=== PATIENT | male | born 1950 | race Caucasian/White ===

== ENCOUNTER 2016-11-22 22:23 | Emergency (ER) | payer MEDICARE, MEDICAID ==
--- NOTE | 2016-11-22 22:51 | RADIOLOGY REPORT (SQ) ---
EXAM DESCRIPTION: KNEE LEFT 4 VIEW COMPLETED DATE/TIME: 11/22/2016 10:42 pm REASON FOR STUDY: fall COMPARISON: None. NUMBER OF VIEWS: Four views. TECHNIQUE: AP, lateral, and both oblique radiographic images acquired of the left knee. LIMITATIONS: None. FINDINGS: MINERALIZATION: Normal. BONES: No acute fracture or dislocation. No worrisome bone lesions. JOINT: There is joint space narrowing in all compartments consistent with osteoarthritis. SOFT TISSUES: No soft tissue swelling. No radio-opaque foreign body. OTHER: No other significant finding. IMPRESSION: Osteoarthritis. No acute findings. TECHNICAL DOCUMENTATION: JOB ID: [id number] [employer]- All Rights Reserved
--- NOTE | 2016-11-22 22:57 | ER Document Report ---
ED Fall - General Mode of Arrival: Wheelchair Information source: Patient TRAVEL OUTSIDE OF THE [place] IN LAST 30 DAYS: No - HPI Occurred: This afternoon - 16:00 Location of injury/pain: Back, Knee - left <LOUIS SHERIDAN - Last Filed: 11/23/16 00:56> <SHYLA MCLAUGHLIN - Last Filed: 11/23/16 05:26> - General Chief Complaint: Fall Stated Complaint: FALL, LEFT KNEE PAIN Time Seen by Provider: 11/22/16 22:57 - HPI Notes: Patient is a 66 year old male presenting to the emergency department for left knee and lower back pain after a fall. Patient fell around 16:00 today. Patient also had an episode of incontinence after the fall. Patient states he was walking and got caught in some amanda which caused him to fall straight forward. Patient states his lower back pain is moving from the right to left side but it is currently on the left side during the exam. Patient states he has a right hip fracture that he is planning to get fixed surgically. Patient states 18 months ago he had a total right knee replacement. Patient is a former smoker. Patient has a history of prostate cancer with bone metastasis. Patient has no known drug allergies. PCP: Dr. Sawant (LOUIS SHERIDAN) - Related data Allergies/Adverse Reactions: No Known Allergies Allergy (Verified 11/18/14 11:20) Past Medical History - General Information source: Patient, Relative - spouse - Social History Smoking Status: Former Smoker Cigarette use (# per day): No Chew tobacco use (# tins/day): No Smoking Education Provided: No Frequency of alcohol use: None Drug Abuse: None Family History: None Patient has suicidal ideation: No Patient has homicidal ideation: No - Past Medical History Cardiac Medical History: Reports: Hx Hypertension Neurological Medical History: Reports: Hx Cerebrovascular Accident - 2013; resulting in loss of 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 Malignancy Medical History: 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; tx w/chemo Traumatic Medical History: Reports: Hx Fractures - right hip Past Surgical History: Reports: Hx Orthopedic Surgery - right knee total replacement <LOUIS SHERIDAN - Last Filed: 11/23/16 00:56> Review of Systems - Review of Systems Constitutional: No symptoms reported EENT: No symptoms reported Cardiovascular: No symptoms reported Respiratory: No symptoms reported Gastrointestinal: No symptoms reported Genitourinary: See HPI, Incontinence Male Genitourinary: No symptoms reported Musculoskeletal: See HPI, Back pain, Joint pain - left knee, Joint swelling - left knee Skin: No symptoms reported Hematologic/Lymphatic: No symptoms reported Neurological/Psychological: No symptoms reported -: Yes All other systems reviewed and negative <LOUIS SHERIDAN - Last Filed: 11/23/16 00:56> Physical Exam - Vital signs Interpretation: Hypertensive <ARVINQUINTINLOUIS - Last Filed: 11/23/16 00:56> <SHYLA MCLAUGHLIN - Last Filed: 11/23/16 05:26> - Vital signs Vitals: Temp Pulse Resp BP Pulse Ox 98.1 F 86 18 163/70 H 99 11/22/16 22:27 11/22/16 22:27 11/22/16 22:27 11/22/16 22:27 11/22/16 22:27 - Notes Notes: GENERAL: Alert, interacts well. Mild distress. HEAD: Normocephalic, atraumatic. EYES: Appear normal. Pupils equal, round, and reactive to light. ENT: Moist mucus membranes, tongue midline. NECK: Full range of motion. Supple. Trachea midline. LUNGS: Clear to auscultation bilaterally, no wheezes, rales, or rhonchi. No respiratory distress. HEART: Regular rate and rhythm. No murmurs, gallops, or rubs. ABDOMEN: Soft, non-tender. Non-distended. Normal bowel sounds. BACK: Left lumbar musculature is slightly tender with palpation. EXTREMITIES: Moves all 4 extremities spontaneously. Normal strength. Non-tender with palpation over the left hip. Diffuse tenderness with palpation, some swelling, and bruising to the left knee. Lateral ligaments are intact. Right hip has some slight tenderness with palpation. NEUROLOGICAL: Alert and oriented x3. Normal speech. No focal neurological deficits. GSC 15. PSYCH: Normal affect, normal mood. SKIN: Warm, dry, normal turgor. (LOUIS SHERIDAN) Course <LOUIS SHERIDAN - Last Filed: 11/23/16 00:56> - Diagnostic Test Radiology reviewed: Image reviewed, Reports reviewed - Left knee x-ray shows osteoarthritic changes without fracture. Right hip shows some joint space narrowing with subchondral sclerosis, lumbar spine shows degenerative changes without fracture. <SHYLA MCLAUGHLIN - Last Filed: 11/23/16 05:26> - Re-evaluation Re-evalutation: 11/23/16 05:25 The knee immobilizer was placed on the left knee by the PCT. It fit well. It provided good support and comfort. The patient had his own crutches with him. ( SHYLA MCLAUGHLIN) - Vital Signs Vital signs: Temp Pulse Resp BP Pulse Ox 98.2 F 81 18 150/73 H 99 11/23/16 00:00 11/23/16 00:00 11/23/16 00:00 11/23/16 00:00 11/23/16 00:00 Discharge <LOUIS SHERIDAN - Last Filed: 11/23/16 00:56> <SHYLA MCLAUGHLIN - Last Filed: 11/23/16 05:26> - Discharge Clinical Impression: Fall Qualifiers: Encounter type: initial encounter Qualified Code(s): W19.XXXA - Unspecified fall, initial encounter Sprain of left knee Qualifiers: Encounter type: initial encounter Involved ligament of knee: unspecified ligament Qualified Code(s): S83.92XA - Sprain of unspecified site of left knee, initial encounter Lumbar strain Qualifiers: Encounter type: initial encounter Qualified Code(s): S39.012A - Strain of muscle, fascia and tendon of lower back, initial encounter Condition: Stable Disposition: HOME, SELF-CARE Additional Instructions: Sprained Knee: Your sprained knee results from a stretching or tearing of the ligaments which support the joint. This often results from a bending stress -- such as a twisting fall while skiing or a "clip" while playing football. The ligaments will require time and protection to heal adequately. A knee sprain can be quite serious, and should be taken seriously. The usual treatment is splinting of the knee, ice packs, and elevation. You shouldn't walk on the leg if weightbearing is painful. Unless the sprain is obviously a minor one, follow-up exam is very important. The degree of ligament damage often cannot be fully assessed at first due to muscle spasm and pain. Your treatment plan may change based on the physician's findings during your follow-up examination. Call the doctor at once if there is severe swelling, increasing pain, numbness, or other alarming symptoms. USE THE KNEE IMMOBILIZER FR SUPPORT AND COMFORT. ELEVATE AND ICE-PACKS TO THE KNEE TODAY. LIMIT WALKING. FOLLOW UP WITH YOUR ORTHOPEDIC DOCTOR TO RECHECK THE KNEE IN THE NEXT 3-5 DAYS. RETURN TO THE EMERGENCY ROOM IF ANY NEW OR WORSENING SYMPTOMS. Scribe Attestation: 11/23/16 00:05 I personally performed the services described in the documentation, reviewed and edited the documentation which was dictated to the scribe in my presence, and it accurately records my words and actions. (SHYLA MCLAUGHLIN) Scribe Documentation - Scribe Written by Everton:: Everton Kraft 11/22/16 23:05 acting as scribe for :: Anna <LOUIS SHERIDAN - Last Filed: 11/23/16 00:56>
--- NOTE | 2016-11-22 23:30 | RADIOLOGY REPORT (SQ) ---
EXAM DESCRIPTION: L SPINE WHOLE COMPLETED DATE/TIME: 11/22/2016 11:23 pm REASON FOR STUDY: old fx, fall, LBP and hip pain COMPARISON: 05/12/2014 NUMBER OF VIEWS: Five views including obliques. TECHNIQUE: AP, lateral, oblique, and sacral radiographic images acquired of the lumbar spine. LIMITATIONS: None. FINDINGS: MINERALIZATION: Normal. SEGMENTATION: Normal. No transitional anatomy. ALIGNMENT: Normal. VERTEBRAE: Maintained height. No fracture or worrisome bone lesion. DISCS: There is mild multilevel disc space narrowing. There is endplate sclerosis. POSTERIOR ELEMENTS: Pedicles and facets are intact. No pars defect or posterior arch defects. HARDWARE: None in the spine. PARASPINAL SOFT TISSUES: Normal. PELVIS: Intact as visualized. No fractures or worrisome bone lesions. SI joints intact. OTHER: No other significant finding. IMPRESSION: Mild degenerative changes. No acute findings. TECHNICAL DOCUMENTATION: JOB ID: [id number] [employer]- All Rights Reserved
--- NOTE | 2016-11-22 23:32 | RADIOLOGY REPORT (SQ) ---
EXAM DESCRIPTION: HIP RIGHT AP/LATERAL COMPLETED DATE/TIME: 11/22/2016 11:23 pm REASON FOR STUDY: old fx, fall, LBP and hip pain COMPARISON: None. NUMBER OF VIEWS: Two views. TECHNIQUE: AP and frog-leg view of the right hip. LIMITATIONS: None. FINDINGS: MINERALIZATION: Normal. RIGHT HIP: There is joint space narrowing and subchondral sclerosis. No acute fracture or dislocatio n OPPOSITE HIP: No fracture or dislocation. No worrisome bone lesions. SOFT TISSUES: No findings. OTHER: No other significant finding. IMPRESSION: Joint space narrowing, subchondral sclerosis. No acute findings. TECHNICAL DOCUMENTATION: JOB ID: [id number] [employer]- All Rights Reserved
[2016-11-23 00:21] VITALS: BP 150/73
== END 2016-11-23 00:23 | disposition home or self-care (01) ==
LOC: ER 22:23
DX: S83.92XA Sprain of unspecified site of left knee, initial encounter (principal); S39.012A Strain of muscle, fascia and tendon of lower back, initial encounter; W17.89XA Other fall from one level to another, initial encounter; Y93.01 Activity, walking, marching and hiking; M25.562 Pain in left knee; M47.9 Spondylosis, unspecified; Z87.891 Personal history of nicotine dependence; Z85.46 Personal history of malignant neoplasm of prostate; Z85.830 Personal history of malignant neoplasm of bone; Z92.21 Personal history of antineoplastic chemotherapy
CPT/HCPCS: 99283; 73502; 73562; 72110; L1830

== ENCOUNTER 2018-09-04 14:23 | Observation (INO) | payer MEDICARE, MEDICAID ==
[2018-09-04] MEDS ORDERED: NORMAL SALINE 1000 ML 1,000 ML IV ONE (15:32)
--- NOTE | 2018-09-04 15:32 | ER Document Report ---
ED Medical Screen (RME) - General Chief Complaint: Abdominal Pain Stated Complaint: PAIN BELOW BELLY BUTTON Time Seen by Provider: 09/04/18 15:30 Primary Care Provider: ROSELINE MICHAUD PA [Primary Care Provider] - Follow up as needed Information source: Patient Notes: Patient presents complaining of right lower quadrant pain that started yesterday. Patient does report some dysuria. Patient denies any penile discharge. Patient denies any fever, nausea vomiting or diarrhea. Patient does have a history of CVA, prostate cancer and hypertension. I have greeted and performed a rapid initial assessment of this patient. A comprehensive ED assessment and evaluation of the patient, analysis of test results and completion of the medical decision making process will be conducted by additional ED providers. TRAVEL OUTSIDE OF THE [place] IN LAST 30 DAYS: No - Related Data Allergies/Adverse Reactions: No Known Allergies Allergy (Verified 09/04/18 14:32) Past Medical History - Past Medical History Cardiac Medical History: Reports: Hx Hypertension Neurological Medical History: Reports: Hx Cerebrovascular Accident - 2012; resulting in loss of 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 Renal/ Medical History: Denies: Hx Peritoneal Dialysis Malignancy Medical History: 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; tx w/chemo Traumatic Medical History: Reports: Hx Fractures - right hip Past Surgical History: Reports: Hx Orthopedic Surgery - right knee total replacement - Immunizations Hx Diphtheria, Pertussis, Tetanus Vaccination: Yes Physical Exam - Vital signs Vitals: Temp Pulse Resp BP Pulse Ox 98.0 F 77 16 106/56 L 98 09/04/18 14:35 09/04/18 14:35 09/04/18 14:35 09/04/18 14:35 09/04/18 14:35 - Abdominal Tenderness: Tender - Right lower quadrant tenderness Course - Vital Signs Vital signs: Temp Pulse Resp BP Pulse Ox 98.0 F 77 16 106/56 L 98 09/04/18 14:35 09/04/18 14:35 09/04/18 14:35 09/04/18 14:35 09/04/18 14:35 Doctor's Discharge - Discharge Referrals: ROSELINE MICHAUD PA [Primary Care Provider] - Follow up as needed
[2018-09-04 17:12] LABS: ABSOLUTE BASOPHILS # (AUTO) 0.1 10^3/uL (0.0-0.2); ABSOLUTE EOSINOPHILS # (AUTO) 0.3 10^3/uL (0.0-0.6); ABSOLUTE LYMPHOCYTES (AUTO) 1.6 10^3/uL (0.5-4.7); ABSOLUTE MONOCYTES (AUTO) 1.3 10^3/uL (0.1-1.4); BASOPHILS % (AUTO) 1.1 % (0-2); EOSINOPHILS % (AUTO) 2.5 % (0-6); HEMATOCRIT 40.8 % (37.9-51.0); HEMOGLOBIN 13.6 g/dL (13.5-17.0); LYMPHOCYTES % (AUTO) 13.9 % (13-45); MEAN CORPUSCULAR HEMOGLOBIN 28.7 pg (27.0-33.4); MEAN CORPUSCULAR HGB CONC 33.2 g/dL (32.0-36.0); MEAN CORPUSCULAR VOLUME 87 fl (80-97); MONOCYTES % (AUTO) 11.2 % (3-13); PLATELET COUNT 263 10^3/uL (150-450); RED BLOOD COUNT 4.72 10^6/uL (4.35-5.55); RED CELL DISTRIBUTION WIDTH 14.8 % (11.5-14.0); SEGMENTED NEUTROPHILS % (AUTO) 71.3 % (42-78); TOTAL CELLS COUNTED % (AUTO) 100 %; WHITE BLOOD COUNT 11.2 10^3/uL (4.0-10.5)
[2018-09-04 17:27] LABS: APPEARANCE,URINE CLEAR; COLOR,URINE AMBER; GLUCOSE, URINE NEGATIVE (NEGATIVE)
[2018-09-04 17:28] LABS: BILIRUBIN,URINE MODERATE (NEGATIVE); KETONES,URINE 25 mg/dL (NEGATIVE); LEUKOCYTE ESTERASE,URINE NEGATIVE (NEGATIVE); NITRITE,URINE NEGATIVE (NEGATIVE); PROTEIN,URINE 30 mg/dL (NEGATIVE)
[2018-09-04 17:29] LABS: ADD MANUAL MICROSCOPIC YES; BACTERIA,URINE 3+ /HPF; WBC,URINE 0-1 /HPF
[2018-09-04 18:42] LABS: CHLAM PCR NOT DETECTED (NOT DETECT); GON PCR NOT DETECTED (NOT DETECT)
[2018-09-04 20:03] LABS: ALANINE AMINOTRANSFERASE 26 U/L (21-72); ALBUMIN 3.4 g/dL (3.5-5.0); ALKALINE PHOSPHATASE 106 U/L (38-126); ANION GAP 10 (5-19); ASPARTATE AMINO TRANSFERASE 26 U/L (17-59); BILIRUBIN,DIRECT 0.2 mg/dL (0.0-0.4); BILIRUBIN,TOTAL 0.3 mg/dL (0.2-1.3); BLOOD UREA NITROGEN 22 mg/dL (7-20); CALCIUM 8.3 mg/dL (8.4-10.2); CARBON DIOXIDE 25 mmol/L (22-30); CHLORIDE 104 mmol/L (98-107); GLUCOSE 92 mg/dL (75-110); POTASSIUM 4.5 mmol/L (3.6-5.0); SODIUM 138.5 mmol/L (137-145)
--- NOTE | 2018-09-04 21:10 | RADIOLOGY REPORT (SQ) ---
EXAM DESCRIPTION: CT ABDOMEN PELVIS WITH IV CONTRAST COMPLETED DATE/TME: 09/04/2018 19:32 CLINICAL HISTORY: 68 years, Male, rlq pain COMPARISON: None. TECHNIQUE: Contrast enhanced CT of the abdomen/pelvis was performed. Coronal and sagittal reformations were acquired. Images stored on PACS. All CT scanners at this facility use dose modulation, iterative reconstruction, and/or weight based dosing when appropriate to reduce radiation dose to as low as reasonably achievable (ALARA). [facility]: Dose Right [facility]: CareDose [facility]: Dose Right [facility]: Teradose 4D [facility]: [employer] LIMITATIONS: None. FINDINGS: Limited evaluation of the lower chest reveals clear lung bases. The liver, spleen, pancreas, gallbladder, and both adrenal glands appear normal. Both kidneys enhance symmetrically. There is no hydronephrosis or hydroureter. The urinary bladder is partially collapsed, thus its evaluation is limited. The small and large bowel appear normal in caliber without areas of focal wall thickening. Evidence of bowel obstruction. The appendix is dilated and fluid-filled, demonstrating periappendiceal inflammatory stranding. No extraluminal free air is identified. Likewise, there is no evidence of a drainable periappendiceal fluid collection. However, significant amorphous soft tissue density is noted immediately adjacent to the appendix, suspicious for phlegmon. The fluid density within the right lower quadrant on image 68 of series 5 in the midst of the inflammation is favored represent the dilated appendiceal tip. A small fat-containing right inguinal hernia is noted. Mild calcifications are evident about the abdominal aorta. No suspicious lymphadenopathy is appreciated. There are no drainable fluid collections. Bone windows show coarse trabeculation about the right hemipelvis. In addition, there is a focal sclerotic lesion located within the superior left acetabulum on image 68 of series 3. IMPRESSION: Findings consistent with acute appendicitis. Superimposed amorphous periappendiceal soft tissue density with adjacent inflammatory stranding indicates periappendiceal phlegmon. The degree of periappendiceal phlegmon is somewhat concerning for perforation though there is no evidence of extraluminal free air. Coarsened trabeculation about the right hemipelvis, suspicious for Paget's disease. Sclerotic lesion located within the superior left acetabulum is indeterminate. Given the patient's history of prostate cancer, course and both scan would be of benefit. THIS REPORT CONTAINS FINDINGS THAT MAY BE CRITICAL TO PATIENT CARE: The findings were verbally discussed via telephone conference with Dr. BIANCA WILLINGHAM by Dr. Arreola on 09/04/2018 2006 hours CDT .The results were acknowledged and understood. TECHNICAL DOCUMENTATION: Quality ID # [id number]: Final reports with documentation of one or more dose reduction techniques (e.g., Automated exposure control, adjustment of the mA and/or kV according to patient size, use of iterative reconstruction technique) copyright 2011 [employer]- All Rights Reserved
[2018-09-04] MEDS ORDERED: PIPERACILLIN/TAZOBACTAM 3.375 GM VIAL IV ONE (21:25)
[2018-09-04] MEDS ORDERED: MORPHINE SULFATE 10 MG/ML INJ IV PRN (21:32)
[2018-09-04] MEDS ORDERED: RINGERS SOLUTION,LACTATED 1,000 ML IV ONE (21:32)
--- NOTE | 2018-09-04 21:41 | ER Document Report ---
ED General - General Chief Complaint: Abdominal Pain Stated Complaint: PAIN BELOW BELLY BUTTON Time Seen by Provider: 09/04/18 15:30 Notes: Patient is a 68-year-old male with past medical history of prior CVA, history of essential hypertension, prostate cancer currently managed with an unspecified agent injected once every 3 months, presents complaining of 36 hours of progressively worsening pain to his right lower quadrant. States that it woke him from sleep yesterday morning and has gotten progressively worse since that time. Describes it as a throbbing, aching, severe, constant pain to the right lower quadrant of his abdomen. Worsened by movement of any kind. Nothing improves the pain. Denies any history of similar symptoms in the past. Denies fever or constitutional symptoms. Has not seen his primary care physician regarding today's concerns. TRAVEL OUTSIDE OF THE [place] IN LAST 30 DAYS: No - Related Data Allergies/Adverse Reactions: No Known Allergies Allergy (Verified 09/04/18 14:32) Past Medical History - General Information source: Patient - Social History Smoking Status: Former Smoker Frequency of alcohol use: Occasional Drug Abuse: None Lives with: Alone Family History: Reviewed & Not Pertinent Patient has suicidal ideation: No Patient has homicidal ideation: No - Past Medical History Cardiac Medical History: Reports: Hx Hypertension Neurological Medical History: Reports: Hx Cerebrovascular Accident - 2012; resulting in loss of 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 Renal/ Medical History: Denies: Hx Peritoneal Dialysis Malignancy Medical History: 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; tx w/chemo Traumatic Medical History: Reports: Hx Fractures - right hip Past Surgical History: Reports: Hx Orthopedic Surgery - right knee total replacement - Immunizations Hx Diphtheria, Pertussis, Tetanus Vaccination: Yes Review of Systems - Review of Systems Notes: Constitutional: Negative for fever. HENT: Negative for sore throat. Eyes: Negative for visual changes. Cardiovascular: Negative for chest pain. Respiratory: Negative for shortness of breath. Gastrointestinal: Positive for lower abdominal pain and nausea Genitourinary: Negative for dysuria. Musculoskeletal: Negative for back pain. Skin: Negative for rash. Neurological: Negative for headaches, weakness or numbness. 10 point ROS negative except as marked above and in HPI. Physical Exam - Vital signs Vitals: Temp Pulse Resp BP Pulse Ox 98.0 F 77 16 106/56 L 98 09/04/18 14:35 09/04/18 14:35 09/04/18 14:35 09/04/18 14:35 09/04/18 14:35 Interpretation: Normal Notes: PHYSICAL EXAMINATION: GENERAL: Appears moderately uncomfortable but in no overt distress HEAD: Atraumatic, normocephalic. EYES: Pupils equal round and reactive to light, extraocular movements intact, sclera anicteric, conjunctiva are normal. ENT: nares patent, oropharynx clear without exudates. Moist mucous membranes. NECK: Normal range of motion, supple without lymphadenopathy LUNGS: Breath sounds clear to auscultation bilaterally and equal. No wheezes rales or rhonchi. HEART: Regular rate and rhythm without murmurs ABDOMEN: Soft, focal tenderness to the right lower quadrant with associated guarding although no rebound. Bowel sounds are present. EXTREMITIES: Normal range of motion, no pitting or edema. No cyanosis. NEUROLOGICAL: No focal neurological deficits. Moves all extremities spontaneously and on command. PSYCH: Normal mood, normal affect. SKIN: Warm, Dry, normal turgor, no rashes or lesions noted. Course - Re-evaluation Re-evalutation: 09/04/18 21:34 Patient presents with a classic exam and history for appendicitis. CT the abdomen pelvis does confirm acute appendicitis localized phlegmon. Perforation is not definitively excluded per the radiologist. Labs show mild leukocytosis, otherwise unremarkable. Last p.o. intake greater than 12 hours ago. Case discussed with Dr. Peck. IV Zosyn has been initiated. Patient has been made n.p.o. IV fluids ongoing. - Vital Signs Vital signs: Temp Pulse Resp BP Pulse Ox 98.0 F 77 16 106/56 L 98 09/04/18 14:35 09/04/18 14:35 09/04/18 14:35 09/04/18 14:35 09/04/18 14:35 - Laboratory Result Diagrams: 09/04/18 16:35 09/04/18 19:37 Laboratory results interpreted by me: 09/04/18 09/04/18 09/04/18 16:15 16:35 19:37 WBC 11.2 H RDW 14.8 H BUN 22 H Calcium 8.3 L Total Protein 6.0 L Albumin 3.4 L Urine Protein 30 H Urine Ketones 25 H Urine Bilirubin MODERATE H Urine Urobilinogen 8.0 H - Diagnostic Test Radiology reviewed: Reports reviewed Discharge - Discharge Clinical Impression: Lower abdominal pain Acute appendicitis Qualifiers: Acute appendicitis type: with localized peritonitis Appendicitis gangrene presence: without gangrene Appendicitis perforation presence: unspecified whether perforation present Appendicitis abscess presence: unspecified whether abscess present Qualified Code(s): K35.30 - Acute appendicitis with localized peritonitis, without perforation or gangrene Condition: Fair Disposition: ADMITTED OBSERVATION Admitting Provider: Surgicalist Unit Admitted: Surgical Floor
--- NOTE | 2018-09-04 22:28 | PDOC H&P ---
History of Present Illness Admission Date/PCP: 09/04/18 22:18 Patient complains of: abdominal pains History of Present Illness: JOSE GALVEZ is a 68 year old male with history of prostate ca c/o RLQ abdominal pains at 1 am today. Went to ED where CT scan showed acute appendicitis. [place] warm but no chills. Burning sesation on voiding. Past Medical History Cardiac Medical History: Reports: Hypertension Malignancy History Note: prostate Ca on therapy Past Surgical History Past Surgical History: Reports: Orthopedic Surgery - right knee total r eplacement Social History Smoking Status: Former Smoker Family History Family History: None Parental Family History Reviewed: Yes Children Family History Reviewed: No Sibling(s) Family History Reviewed.: No Medication/Allergy Allergies/Adverse Reactions: No Known Allergies Allergy (Verified 09/04/18 14:32) Review of Systems Constitutional: PRESENT: as per HPI Eyes: PRESENT: other - no visual/hearing changes Cardiovascular: PRESENT: other - no chest pains/cough Gastrointestinal: PRESENT: abdominal pain Genitourinary: PRESENT: dysuria Physical Exam Vital Signs: Temp Pulse Resp BP Pulse Ox 98.0 F 77 16 106/56 L 98 09/04/18 14:35 09/04/18 14:35 09/04/18 14:35 09/04/18 14:35 09/04/18 14:35 Intake & Output 09/03/18 09/04/18 09/05/18 06:59 06:59 06:59 Weight 66.5 kg General appearance: PRESENT: mild distress Head exam: PRESENT: atraumatic Eye exam: PRESENT: conjunctiva pink Mouth exam: PRESENT: moist Neck exam: PRESENT: full ROM Respiratory exam: PRESENT: clear to auscultation marylu Cardiovascular exam: PRESENT: RRR Pulses: PRESENT: normal radial pulses Vascular exam: PRESENT: normal capillary refill GI/Abdominal exam: PRESENT: soft, tenderness - RLQ Rectal exam: PRESENT: deferred Extremities exam: PRESENT: full ROM Musculoskeletal exam: PRESENT: ambulatory Neurological exam: PRESENT: alert, oriented to person, oriented to place, oriented to time, oriented to situation Psychiatric exam: PRESENT: appropriate affect Skin exam: PRESENT: normal color, warm Results Laboratory Results: 09/04/18 16:35 09/04/18 19:37 09/04/18 09/04/18 09/04/18 16:15 16:35 16:35 WBC 11.2 H RBC 4.72 Hgb 13.6 Hct 40.8 MCV 87 MCH 28.7 MCHC 33.2 RDW 14.8 H Plt Count 263 Seg Neutrophils % 71.3 Lymphocytes % 13.9 Monocytes % 11.2 Eosinophils % 2.5 Basophils % 1.1 Absolute Neutrophils 8.0 Absolute Lymphocytes 1.6 Absolute Monocytes 1.3 Absolute Eosinophils 0.3 Absolute Basophils 0.1 Sodium Cancelled Potassium Cancelled Chloride Cancelled Carbon Dioxide Cancelled Anion Gap Cancelled BUN Cancelled Creatinine Cancelled Est GFR ( Amer) Cancelled Est GFR (Non-Af Amer) Cancelled Glucose Cancelled Calcium Cancelled Total Bilirubin Cancelled AST Cancelled ALT Cancelled Alkaline Phosphatase Cancelled Total Protein Cancelled Albumin Cancelled Urine Color YULIYA Urine Appearance CLEAR Urine pH 6.0 Ur Specific [place] 1.030 Urine Protein 30 H Urine Glucose (UA) NEGATIVE Urine Ketones 25 H Urine Blood NEGATIVE Urine Nitrite NEGATIVE Ur Leukocyte Esterase NEGATIVE 09/04/18 19:37 WBC RBC Hgb Hct MCV MCH MCHC RDW Plt Count Seg Neutrophils % Lymphocytes % Monocytes % Eosinophils % Basophils % Absolute Neutrophils Absolute Lymphocytes Absolute Monocytes Absolute Eosinophils Absolute Basophils Sodium 138.5 Potassium 4.5 Chloride 104 Carbon Dioxide 25 Anion Gap 10 BUN 22 H Creatinine 0.94 Est GFR ( Amer) > 60 Est GFR (Non-Af Amer) > 60 Glucose 92 Calcium 8.3 L Total Bilirubin 0.3 AST 26 ALT 26 Alkaline Phosphatase 106 Total Protein 6.0 L Albumin 3.4 L Urine Color Urine Appearance Urine pH Ur Specific [place] Urine Protein Urine Glucose (UA) Urine Ketones Urine Blood Urine Nitrite Ur Leukocyte Esterase Impressions: Abdomen/Pelvis CT 09/04/18 19:32 IMPRESSION: Findings consistent with acute appendicitis. Superimposed amorphous periappendiceal soft tissue density with adjacent inflammatory stranding indicates periappendiceal phlegmon. The degree of periappendiceal phlegmon is somewhat concerning for perforation though there is no evidence of extraluminal free air. Coarsened trabeculation about the right hemipelvis, suspicious for Paget's disease. Sclerotic lesion located within the superior left acetabulum is indeterminate. Given the patient's history of prostate cancer, course and both scan would be of benefit. THIS REPORT CONTAINS FINDINGS THAT MAY BE CRITICAL TO PATIENT CARE: The findings were verbally discussed via telephone conference with Dr. BIANCA WILLINGHAM by Dr. Arreola on 09/04/2018 2006 [facility] CDT .The results were acknowledged and understood. TECHNICAL DOCUMENTATION: Quality ID # 436: Final reports with documentation of one or more dose reduction techniques (e.g., Automated exposure control, adjustment of the mA and/or kV according to patient size, use of iterative reconstruction technique) copyright 2011 [employer]- All Rights Reserved Assessment & Plan - Diagnosis (1) Acute appendicitis Qualifiers: Acute appendicitis type: with localized peritonitis Appendicitis gangrene presence: without gangrene Appendicitis perforation presence: unspecified whether perforation present Appendicitis abscess presence: unspecified whether abscess present Qualified Code(s): K35.30 - Acute appendicitis with localized peritonitis, without perforation or gangrene Is this a current diagnosis for this admission?: Yes (2) Lower abdominal pain Is this a current diagnosis for this admission?: Yes - Time Time Spent: 30 to 50 Minutes - Inpatient Certification Medical Necessity: Need For IV Fluids, Need for IV Antibiotics, Need for Surgery - Plan Summary Plan Summary: Start IV antibiotics Hydration For lap appendectomy
[2018-09-05] MEDS ORDERED: FENTANYL CITRATE INJ/PF 100 MCG/2 ML AMPUL ONE (02:27)
[2018-09-05] MEDS ORDERED: PROPOFOL INJ 200 MG/20 ML VIAL IV ONE (02:27)
[2018-09-05] MEDS ORDERED: MIDAZOLAM 2 MG/2 ML INJ ONE (02:27)
[2018-09-05] MEDS ORDERED: BUPIVACAINE HCL 0.25 % INJ/PF (2.5 MG/1 ML) 30 ML VIAL ONE (02:31)
[2018-09-05] MEDS ORDERED: EPHEDRINE SULFATE INJ 50 MG/1 ML AMPULE ONE (03:15)
[2018-09-05] MEDS ORDERED: MORPHINE SULFATE 10 MG/ML INJ IV PRN (03:37)
[2018-09-05] MEDS ORDERED: PROMETHAZINE HCL INJ 25 MG/1 ML VIAL IV PRN ×2 (03:37)
[2018-09-05] MEDS ORDERED: MEPERIDINE HCL/PF INJ 25 MG/1 ML DISP.SYRIN IV PRN (03:37)
[2018-09-05] MEDS ORDERED: OXYCODONE-ACETAMINOPHEN 5-325 MG TABLET PO PRN ×2 (03:37)
[2018-09-05] MEDS ORDERED: ONDANSETRON HCL INJ/PF 4 MG/2 ML SDV IV PRN (03:37)
[2018-09-05] MEDS ORDERED: FENTANYL CITRATE INJ/PF 100 MCG/2 ML AMPUL IV PRN ×3 (03:37)
[2018-09-05] MEDS ORDERED: DIPHENHYDRAMINE HCL 50 MG/ML VIAL IV PRN (03:37)
[2018-09-05] MEDS ORDERED: NORMAL SALINE 1000 ML 1,000 ML IV PRN (04:48)
[2018-09-05] MEDS: FENTANYL CITRATE INJ/PF 100 MCG/2 ML AMPUL ONE ×2 (04:49→04:54)
[2018-09-05] MEDS ORDERED: PIPERACILLIN/TAZOBACTAM 3.375 GM VIAL IV ONE (06:11)
[2018-09-05] MEDS: PIPERACILLIN SODIUM/TAZOBACTAM 3.375 GM in NORMAL SALINE 100 ML IV SCH ×4 (06:22→23:42)
--- NOTE | 2018-09-05 07:54 | OPERATIVE REPORT E ---
Operative Report NAME: JOSE GALVEZ : 1950 AGE: 68Y DATE OF SURGERY: 09/05/2018 ROOM: 431 PREOPERATIVE DIAGNOSIS: Acute appendicitis. POSTOPERATIVE DIAGNOSIS: Acute appendicitis. PROCEDURE: Laparoscopic appendectomy. SURGEON: CARLOS EDUARDO MILLER M.D. ANESTHESIA: General. INDICATION: This is a 68-year-old male complaining of pain in the right lower quadrant area the morning of 1 a.m. 09/04/2018. He went to ED where a CAT scan of the abdomen revealed acute appendicitis. He was tender in the right lower quadrant and his white count slightly elevated. DESCRIPTION OF PROCEDURE: After adequate general anesthesia, the patient was placed in supine position and the abdomen prepped and draped in the usual sterile fashion. A small umbilical incision made and the fascia grasped with Amado clamps on each side and divided between the Amado clamps. The abdominal cavity was then entered with digital dissection and no evidence of adhesion in the peritoneal area noted. Two sutures of 0 Vicryl were placed on each side of the fascia along the Amado clamps. Amado clamps were released and a Millan trocar inserted through the fascia into the abdominal cavity and CO2 insufflated with a pressure of 15 mmHg. Two other trocars were placed, a 5 mm in the suprapubic and a 12 mm in the left lower quadrant under direct vision. The appendix was then identified and the base appears to be not inflamed. However, when lifting it up, there is a small amount of purulent material extruded out. Specimen was then obtained for C and S. Next, the appendix was then lifted up and the distal tip was divided where the perforation was noted. Perforation only noted after lifting it up. The mesoappendix was subsequently divided with the use of Harmonic bret down to its base. The base of the appendix was subsequently divided with 30 mm Endo MERT. The appendiceal specimen was then placed in the Endo bag and pulled out through the umbilical port. Next, the tip of the appendix, which appears to be just the wall, was partly removed piecemeal since it was quite adherent to the lateral wall. Practically all of the appendiceal wall was removed. The area was then irrigated and no evidence of appendiceal contents noted and minimal bleeding noted. A small Surgicel was then placed over the appendiceal area. A drain placed through the suprapubic port. A drain was placed around the area of the appendix. Appendiceal stump inspected and noted to be no bleeding. The drain, which was a 15-Andorran blade, was then anchored to the skin with 3-0 nylon. All the trocars were then removed and CO2 allowed to come out of the trocar sites. The infraumbilical fascial defect was then closed with [id number] suture using 0 Vicryl and the 2 stay sutures tied together to have a better closure. The fascia was then injected with local anesthesia. The skin incisions also injected with local anesthesia. The 2 skin incisions, the infraumbilical and the left lower quadrant were then closed with running subcuticular 4-0 Vicryl undyed. Sterile dressings placed over the operative sites. Needle, instrument, and sponge count were all correct, and estimated blood loss was no more than 5 mL. The patient was then brought to the recovery room in satisfactory condition extubated. DICTATING PHYSICIAN: CARLOS EDUARDO MILLER M.D. [id number] PHY#: [id number] ID: [id number] JOB#: [id number] ACCT: [id number] cc:CARLOS EDUARDO MILLER M.D. >
[2018-09-05] MEDS: MORPHINE SULFATE 10 MG/ML INJ IV PRN ×2 (08:52→16:14)
[2018-09-05] MEDS ORDERED: NEOSTIGMINE METHYLSULFATE 10 MG/10 ML VIAL ONE (12:47)
[2018-09-05] MEDS ORDERED: METOCLOPRAMIDE HCL INJ/PF 10 MG/2 ML SDV ONE (12:47)
[2018-09-05] MEDS ORDERED: DEXAMETHASONE SOD PHOSPHATE INJ 4 MG/1 ML VIAL ONE (12:47)
[2018-09-05] MEDS ORDERED: GLYCOPYRROLATE 1 MG/5 ML SYRINGE ONE (12:47)
[2018-09-05] MEDS ORDERED: ONDANSETRON HCL INJ/PF 4 MG/2 ML SDV ONE (12:47)
[2018-09-05] MEDS ORDERED: SUCCINYLCHOLINE CHLORIDE INJ 200 MG/10 ML VIAL ONE (12:47)
[2018-09-05] MEDS ORDERED: VECURONIUM BROMIDE INJ 10 MG VIAL IV ONE (12:47)
[2018-09-05] MEDS: OXYCODONE-ACETAMINOPHEN 5-325 MG TABLET PO PRN ×2 (20:24→23:57)
--- NOTE | 2018-09-05 22:39 | EKG REPORT ---
SEVERITY:- NORMAL ECG - SINUS RHYTHM : Confirmed by: Tasha Garcia 05-Sep-2018 22:38:37
[2018-09-06] MEDS: MORPHINE SULFATE 10 MG/ML INJ IV PRN (01:43)
[2018-09-06] MEDS: PIPERACILLIN SODIUM/TAZOBACTAM 3.375 GM in NORMAL SALINE 100 ML IV SCH ×4 (05:34→23:43)
[2018-09-06] MEDS: OXYCODONE-ACETAMINOPHEN 5-325 MG TABLET PO PRN ×4 (05:35→23:43)
--- NOTE | 2018-09-06 09:01 | PDOC PROGRESS REPORT ---
Subjective Progress Note for:: 09/06/18 Subjective:: less pains Reason For Visit: ACUTE APPENDICITIS Physical Exam Vital Signs: Temp Pulse Resp BP Pulse Ox 98.6 F 70 17 149/60 H 100 09/05/18 23:53 09/05/18 23:53 09/05/18 23:53 09/05/18 23:53 09/05/18 23:53 Intake & Output 09/05/18 09/06/18 09/07/18 06:59 06:59 06:59 Intake Total 2100 1675 Output Total 10 1915 Balance 2090 -240 Weight 68.2 kg 77.6 kg Exam: JANKI drainage decreasing abd is soft Dressings clean and dry Results Laboratory Results: 09/04/18 16:35 09/04/18 19:37 Impressions: Abdomen/Pelvis CT 09/04/18 19:32 IMPRESSION: Findings consistent with acute appendicitis. Superimposed amorphous periappendiceal soft tissue density with adjacent inflammatory stranding indicates periappendiceal phlegmon. The degree of periappendiceal phlegmon is somewhat concerning for perforation though there is no evidence of extraluminal free air. Coarsened trabeculation about the right hemipelvis, suspicious for Paget's disease. Sclerotic lesion located within the superior left acetabulum is indeterminate. Given the patient's history of prostate cancer, course and both scan would be of benefit. THIS REPORT CONTAINS FINDINGS THAT MAY BE CRITICAL TO PATIENT CARE: The findings were verbally discussed via telephone conference with Dr. BIANCA WILLINGHAM by Dr. Arreola on 09/04/[address] [place] [address] CDT .The results were acknowledged and understood. TECHNICAL DOCUMENTATION: Quality ID # 436: Final reports with documentation of one or more dose reduction techniques (e.g., Automated exposure control, adjustment of the mA and/or kV according to patient size, use of iterative reconstruction technique) copyright 2010 [employer]- All Rights Reserved Assessment & Plan - Diagnosis (1) Acute appendicitis Qualifiers: Acute appendicitis type: with localized peritonitis Appendicitis gangrene presence: without gangrene Appendicitis perforation presence: unspecified whether perforation present Appendicitis abscess presence: unspecified whether abscess present Qualified Code(s): K35.30 - Acute appendicitis with localized peritonitis, without perforation or gangrene Is this a current diagnosis for this admission?: Yes (2) Lower abdominal pain Is this a current diagnosis for this admission?: Yes - Time Time Spent with patient: 15-24 minutes - Inpatient Certification Medical Necessity: Need for IV Antibiotics - Plan Summary Plan Summary: Check WBC. If normal will discharge
[2018-09-06] MEDS: TAMSULOSIN HCL 0.4 MG CAP.SR.24H PO SCH (09:35)
[2018-09-07 05:26] LABS: ABSOLUTE EOSINOPHILS # (AUTO) 0.3 10^3/uL (0.0-0.6); ABSOLUTE LYMPHOCYTES (AUTO) 0.9 10^3/uL (0.5-4.7); ABSOLUTE MONOCYTES (AUTO) 0.5 10^3/uL (0.1-1.4); ABSOLUTE NEUT (AUTO) 3.4 10^3/uL (1.7-8.2); BASOPHILS % (AUTO) 0.9 % (0-2); EOSINOPHILS % (AUTO) 5.7 % (0-6); HEMATOCRIT 34.8 % (37.9-51.0); MEAN CORPUSCULAR HEMOGLOBIN 28.2 pg (27.0-33.4); MEAN CORPUSCULAR HGB CONC 33.2 g/dL (32.0-36.0); MEAN CORPUSCULAR VOLUME 85 fl (80-97); MONOCYTES % (AUTO) 10.4 % (3-13); PLATELET COUNT 214 10^3/uL (150-450); RED BLOOD COUNT 4.09 10^6/uL (4.35-5.55); RED CELL DISTRIBUTION WIDTH 14.2 % (11.5-14.0); TOTAL CELLS COUNTED % (AUTO) 100 %; WHITE BLOOD COUNT 5.1 10^3/uL (4.0-10.5)
[2018-09-07] MEDS: PIPERACILLIN SODIUM/TAZOBACTAM 3.375 GM in NORMAL SALINE 100 ML IV SCH ×2 (05:28→13:31)
[2018-09-07] MEDS: OXYCODONE-ACETAMINOPHEN 5-325 MG TABLET PO PRN (05:32)
[2018-09-07 05:35] LABS: HEMOGLOBIN 11.5 g/dL (13.5-17.0)
[2018-09-07] MEDS: TAMSULOSIN HCL 0.4 MG CAP.SR.24H PO SCH (09:41)
[2018-09-07 12:25] VITALS: BP 154/71
--- NOTE | 2018-09-07 12:59 | DISCHARGE SUMMARY E ---
Discharge Summary NAME: JOSE GALVEZ : 1950 AGE: 68Y ADMITTED: 09/04/2018 DISCHARGED: 09/07/2018 FINAL DIAGNOSIS: Perforated acute appendicitis. PROCEDURE: Laparoscopic appendectomy, 09/04/2018. HOSPITAL COURSE: This is a 68-year-old male who was noted to have acute appendicitis on a CAT scan on admission, as well as his white count was elevated. He has a history of prostate cancer, undergoing therapy. On 09/04/2018, underwent laparoscopic appendectomy and noted to have a perforated distal appendix, more noticeable when it was lifted up during operation, with extrusion of purulent material. He continued to have some pains and no flatus until the day of discharge on 09/07/2018. His white count on the day of discharge came down to normal at 5.1. He was able to void better with Flomax. His pathology of the appendix is still pending. He was then discharged improved on 09/07/2018, on no antibiotics. Prescription for Flomax was given to the patient. Patient to be followed up in the surgical clinic in about 10 days. DICTATING PHYSICIAN: CARLOS EDUARDO MILLER M.D. [id number] PHY#: [id number] ID: [id number] JOB#: [id number] ACCT: [id number] cc:CARLOS EDUARDO REARDON M.D. >
== END 2018-09-07 13:30 | disposition home or self-care (01) ==
LOC: ER 14:23 → EH 22:18 → 4S 09-05 05:37
PROVIDERS: ATTEND Surgery
PROC: 0DTJ4ZZ Resection of Appendix, Percutaneous Endoscopic Approach (ICD-10-PCS; principal; 2018-09-05 01:00)
DX: K35.33 Acute appendicitis with perforation, localized peritonitis, and gangrene, with abscess (principal); C61 Malignant neoplasm of prostate; C79.51 Secondary malignant neoplasm of bone; I69.398 Other sequelae of cerebral infarction; H54.62 Unqualified visual loss, left eye, normal vision right eye; Z79.899 Other long term (current) drug therapy; Z87.891 Personal history of nicotine dependence; Z60.2 Problems related to living alone
CPT/HCPCS: 99285; 96361; 96375; 96365; 86900; 86901; 36415 ×2; 87086; 87205; 87070; 86850; 82962; 85025 ×2; 87075; 87077; 80053; 81001; 87186; 87491; 87591; 88304 ×2; 74177; 93005; 93010; 44970; G0378 ×3; J2250; J1100; J3490 ×3; J3010; J2765; J2270 ×3; J2710; A9270 ×5; J0330; J2405; J7050 ×3; J7030 ×2; J7120; J2704; J2543 ×4; 840

== ENCOUNTER 2019-01-11 11:43 | Emergency (ER) | payer MEDICARE, MEDICAID ==
--- NOTE | 2019-01-11 12:17 | ER Document Report ---
ED Medical Screen (RME) - General Chief Complaint: Knee Pain Stated Complaint: BOTH KNEE PAIN Time Seen by Provider: 01/11/19 12:07 Mode of Arrival: Ambulatory Information source: Patient Notes: Patient presents complaining of multiple complaints today that have been going for some time. Patient complains of bilateral knee pain for the past year low back pain. Patient also complains of headache and dysuria today. Patient states that the low back pain will occasionally radiate around to the lower pelvic area. Patient does report a history of prostate cancer. Patient has a history of bilateral knee replacements and denies any recent trauma to the knees. Patient states he called his primary doctor advised him to come here for x-rays. I have greeted and performed a rapid initial assessment of this patient. A comprehensive ED assessment and evaluation of the patient, analysis of test results and completion of the medical decision making process will be conducted by additional ED providers. TRAVEL OUTSIDE OF THE [place] 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; tx w/chemo Psychiatric Medical History: Denies: Hx Depression Traumatic Medical History: Reports: Hx Fractures - right hip Past Surgical History: Reports: Hx Orthopedic Surgery - right knee total replacement - Immunizations Hx Diphtheria, Pertussis, Tetanus Vaccination: Yes Physical Exam - Vital signs Vitals: Temp Pulse Resp BP Pulse Ox 97.8 F 68 18 136/87 H 100 01/11/19 11:48 01/11/19 11:48 01/11/19 11:48 01/11/19 11:48 01/11/19 11:48 - General Notes: Lumbar paraspinal tenderness, bilateral knee pain Course - Vital Signs Vital signs: Temp Pulse Resp BP Pulse Ox 97.8 F 68 18 136/87 H 100 01/11/19 11:48 01/11/19 11:48 01/11/19 11:48 01/11/19 11:48 01/11/19 11:48
[2019-01-11 13:07] LABS: APPEARANCE,URINE CLEAR; BILIRUBIN,URINE NEGATIVE (NEGATIVE); COLOR,URINE YELLOW; GLUCOSE, URINE 50 mg/dL (NEGATIVE); KETONES,URINE NEGATIVE (NEGATIVE); LEUKOCYTE ESTERASE,URINE NEGATIVE (NEGATIVE); NITRITE,URINE NEGATIVE (NEGATIVE); PROTEIN,URINE 30 mg/dL (NEGATIVE); URINE SPECIFIC GRAVITY 1.021; UROBILINOGEN,URINE NEGATIVE mg/dL (<2.0)
--- NOTE | 2019-01-11 13:59 | RADIOLOGY REPORT (SQ) ---
EXAM DESCRIPTION: KNEE LEFT 4 VIEW COMPLETED DATE/TIME: 01/11/2019 1:52 pm REASON FOR STUDY: knee pain COMPARISON: None. NUMBER OF VIEWS: Four views. TECHNIQUE: AP, lateral, and both oblique radiographic images acquired of the left knee. LIMITATIONS: None. FINDINGS: MINERALIZATION: Normal. BONES: No acute fracture or dislocation. No worrisome bone lesions. No significant osteophytes. JOINT: Chondrocalcinosis. OTHER: No other significant finding. IMPRESSION: Chondrocalcinosis. No acute findings. TECHNICAL DOCUMENTATION: JOB ID: [id number] [employer]- All Rights Reserved Reading location - IP/workstation name: [email or web address]
--- NOTE | 2019-01-11 14:00 | RADIOLOGY REPORT (SQ) ---
EXAM DESCRIPTION: KNEE RIGHT 4 VIEWS COMPLETED DATE/TIME: 01/11/2019 1:52 pm REASON FOR STUDY: knee pain COMPARISON: None. NUMBER OF VIEWS: Four views. TECHNIQUE: AP, lateral, and both oblique radiographic images acquired of the right knee. LIMITATIONS: None. FINDINGS: MINERALIZATION: Normal. BONES: No acute fracture. Total knee replacement. No significant osteophytes. JOINT: Joint effusion. OTHER: No other significant finding. IMPRESSION: Joint effusion. Total knee replacement. TECHNICAL DOCUMENTATION: JOB ID: [id number] [employer]- All Rights Reserved Reading location - IP/workstation name: [email or web address]
--- NOTE | 2019-01-11 14:01 | RADIOLOGY REPORT (SQ) ---
EXAM DESCRIPTION: L SPINE WHOLE COMPLETED DATE/TIME: 01/11/2019 1:52 pm REASON FOR STUDY: back pain COMPARISON: None. NUMBER OF VIEWS: Five views including obliques. TECHNIQUE: AP, lateral, oblique, and sacral radiographic images acquired of the lumbar spine. LIMITATIONS: None. FINDINGS: MINERALIZATION: Osteopenia. SEGMENTATION: Normal. No transitional anatomy. ALIGNMENT: Normal. VERTEBRAE: Maintained height. No fracture or worrisome bone lesion. DISCS: Minimal osteophytes. No disc space narrowing. POSTERIOR ELEMENTS: Pedicles and facets are intact. No pars defect or posterior arch defects. HARDWARE: None in the spine. PARASPINAL SOFT TISSUES: Normal. PELVIS: Intact as visualized. No fractures or worrisome bone lesions. SI joints intact. OTHER: No other significant finding. IMPRESSION: Mild degenerative changes. TECHNICAL DOCUMENTATION: JOB ID: [id number] [employer]- All Rights Reserved Reading location - IP/workstation name: [email or web address]
[2019-01-11 14:16] LABS: ABSOLUTE BASOPHILS # (AUTO) 0.1 10^3/uL (0.0-0.2); ABSOLUTE EOSINOPHILS # (AUTO) 0.6 10^3/uL (0.0-0.6); ABSOLUTE LYMPHOCYTES (AUTO) 1.7 10^3/uL (0.5-4.7); ABSOLUTE MONOCYTES (AUTO) 0.5 10^3/uL (0.1-1.4); ABSOLUTE NEUT (AUTO) 3.9 10^3/uL (1.7-8.2); BASOPHILS % (AUTO) 1.1 % (0-2); EOSINOPHILS % (AUTO) 8.4 % (0-6); HEMATOCRIT 42.5 % (37.9-51.0); HEMOGLOBIN 14.2 g/dL (13.5-17.0); LYMPHOCYTES % (AUTO) 25.5 % (13-45); MEAN CORPUSCULAR HEMOGLOBIN 28.7 pg (27.0-33.4); MEAN CORPUSCULAR HGB CONC 33.5 g/dL (32.0-36.0); MEAN CORPUSCULAR VOLUME 86 fl (80-97); MONOCYTES % (AUTO) 7.7 % (3-13); PLATELET COUNT 210 10^3/uL (150-450); RED BLOOD COUNT 4.97 10^6/uL (4.35-5.55); RED CELL DISTRIBUTION WIDTH 14.1 % (11.5-14.0); SEGMENTED NEUTROPHILS % (AUTO) 57.3 % (42-78); TOTAL CELLS COUNTED % (AUTO) 100 %; WHITE BLOOD COUNT 6.9 10^3/uL (4.0-10.5)
[2019-01-11 14:40] LABS: ALBUMIN 4.9 g/dL (3.5-5.0); ALKALINE PHOSPHATASE 111 U/L (38-126); ANION GAP 13 (5-19); ASPARTATE AMINO TRANSFERASE 40 U/L (17-59); BILIRUBIN,DIRECT 0.2 mg/dL (0.0-0.4); BILIRUBIN,TOTAL 0.4 mg/dL (0.2-1.3); BLOOD UREA NITROGEN 26 mg/dL (7-20); CALCIUM 10.6 mg/dL (8.4-10.2); CARBON DIOXIDE 22 mmol/L (22-30); CHLORIDE 106 mmol/L (98-107); GLUCOSE 82 mg/dL (75-110); POTASSIUM 4.4 mmol/L (3.6-5.0); TOTAL PROTEIN 8.7 g/dL (6.3-8.2)
--- NOTE | 2019-01-11 15:46 | ER Document Report ---
ED General - General Chief Complaint: Knee Pain Stated Complaint: BOTH KNEE PAIN Time Seen by Provider: 01/11/19 12:07 Mode of Arrival: Ambulatory TRAVEL OUTSIDE OF THE [place] IN LAST 30 DAYS: No - HPI Notes: Patient is a 68-year-old male with chronic back and bilateral knee pain who presents emergency department for evaluation. He states his primary care doctor sent him here for further evaluation. He states this is chronic, source of the last month. He used to be on fentanyl and oxycodone. Since stopping this his pain is worse. He states his primary doctor told me to come in for x-rays. Denies any fever or chills. No bowel or bladder clonus, no saddle anesthesia, n o focal numbness or weakness. He does have some dysuria but this is chronic since his diagnosis of prostate cancer. - Related Data Allergies/Adverse Reactions: No Known Allergies Allergy (Verified 01/11/19 12:02) Past Medical History - General Information source: Patient - Social History Smoking Status: Former Smoker Chew tobacco use (# tins/day): No Frequency of alcohol use: None Drug Abuse: None Family History: Reviewed & Not Pertinent Patient has suicidal ideation: No Patient has homicidal ideation: No - Past Medical History Cardiac Medical History: Reports: Hx Hypertension Neurological Medical History: Reports: Hx Cerebrovascular Accident - 2012; resulting in loss of 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 Renal/ Medical History: Denies: Hx Peritoneal Dialysis Malignancy Medical History: 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; tx w/chemo Psychiatric Medical History: Denies: Hx Depression Traumatic Medical History: Reports: Hx Fractures - right hip Past Surgical History: Reports: Hx Orthopedic Surgery - right knee total replacement - Immunizations Hx Diphtheria, Pertussis, Tetanus Vaccination: Yes Review of Systems - Review of Systems Constitutional: No symptoms reported EENT: No symptoms reported Cardiovascular: No symptoms reported Respiratory: No symptoms reported Gastrointestinal: No symptoms reported Genitourinary: See HPI Male Genitourinary: No symptoms reported Musculoskeletal: See HPI Skin: No symptoms reported Neurological/Psychological: No symptoms reported Physical Exam - Vital signs Vitals: Temp Pulse Resp BP Pulse Ox 97.8 F 68 18 136/87 H 100 01/11/19 11:48 01/11/19 11:48 01/11/19 11:48 01/11/19 11:48 01/11/19 11:48 - Notes Notes: Vital signs reviewed, please refer to chart. Head is normocephalic, atraumatic. Neck is supple without meningismus. Heart is regular rate and rhythm. Lungs are clear to auscultation bilaterally. Abdomen is soft, nontender, normoactive bowel sounds throughout. Extremities without cyanosis, clubbing. Posterior calves are nontender. Peripheral pulses are equal. Skin is warm and dry. Patient is awake, alert, neurological exam is nonfocal. Semination of the spine yields no midline tenderness or step-off. No paraspinal musculature tenderness appreciated. He is a mild amount of edema about the right knee. Anterior scar consistent with TKR. Neurovascularly intact distally.'s Course - Re-evaluation Re-evalutation: 01/11/19 15:45 Patient presents to the emergency department for evaluation. Imaging and laboratory investigations are obtained. Imaging failed to reveal any significant acute findings. The patient's lab work shows a mildly increased creatinine but certainly not anything overwhelming. I will send the patient home with a prescription for small amount of Percocet. He is to follow-up with his oncologist on Saturday, return to the ED with worsening or new concerning symptoms. - Vital Signs Vital signs: Temp Pulse Resp BP Pulse Ox 97.8 F 68 18 136/87 H 100 01/11/19 11:48 01/11/19 11:48 01/11/19 11:48 01/11/19 11:48 01/11/19 11:48 - Laboratory Result Diagrams: 01/11/19 14:06 01/11/19 14:06 Laboratory results interpreted by me: 01/11/19 01/11/19 01/11/19 12:40 14:06 14:06 RDW 14.1 H Eos % (Auto) 8.4 H BUN 26 H Creatinine 1.33 H Est GFR (MDRD) Non-Af 53 L Calcium 10.6 H Total Protein 8.7 H Urine Protein 30 H Urine Glucose (UA) 50 H - Diagnostic Test Radiology reviewed: Reports reviewed Radiology results interpreted by me: 01/11/19 15:46 Knee X-Ray 01/11/19 12:13 IMPRESSION: Chondrocalcinosis. No acute findings. Knee X-Ray 01/11/19 12:13 IMPRESSION: Joint effusion. Total knee replacement. Lumbar Spine X-Ray 09/29/19 12:13 IMPRESSION: Mild degenerative changes. Discharge - Discharge Clinical Impression: Chronic pain of both knees Chronic back pain Qualifiers: Back pain location: low back pain Back pain laterality: unspecified Sciatica presence: without sciatica Qualified Code(s): M54.5 - Low back pain; G89.29 - Other chronic pain Condition: Stable Disposition: HOME, SELF-CARE Instructions: Oral Narcotic Medication ([facility]) Additional Instructions: Take pain medication as prescribed. Watch for constipation. Follow-up with your oncologist on Saturday. Return to the ED with worsening or new concerning symptoms of any sort. Prescriptions: Oxycodone HCl/Acetaminophen [Percocet 5-325 mg Tablet] 1 - 2 tab PO Q6HP PRN #10 tablet PRN Reason:
[2019-01-11 16:21] VITALS: BP 147/65
== END 2019-01-11 16:21 | disposition home or self-care (01) ==
LOC: ER 11:43
DX: M25.561 Pain in right knee (principal); M25.562 Pain in left knee; M54.5 Low back pain; G89.29 Other chronic pain; R30.0 Dysuria; Z87.891 Personal history of nicotine dependence; I10 Essential (primary) hypertension
CPT/HCPCS: 36415; 72110; 80053; 81001; 85025; 99283

== ENCOUNTER → 2019-05-16 | Outpatient (CLI) | payer MEDICARE, MEDICAID ==
--- NOTE | 2019-05-16 13:30 | RADIOLOGY REPORT (SQ) ---
EXAM DESCRIPTION: MRI THORACIC SPINE COMBO COMPLETED DATE/TIME: 05/16/2019 1:13 pm REASON FOR STUDY: C79.51 BONE METS C79.51 SECONDARY MALIGNANT NEOPLASM OF BONE COMPARISON: None. TECHNIQUE: Sagittal and Axial imaging includes T1, T2, STIR and gradient echo sequences. T1 post ga dolinium sequences. CONTRAST TYPE AND DOSE: 15 mL Dotarem. RENAL FUNCTION: Not indicated. ACR Type II contrast agent associated with few, if any, unconfounded cases of NSF LIMITATIONS: None. FINDINGS: LOCALIZER: No worrisome findings. ALIGNMENT: Normal. VERTEBRAE: Intact. BONE MARROW: Normal. No marrow replacement or reactive changes. HARDWARE: None in the spine. CORD: Normal in size and signal intensity. SOFT TISSUES: No soft tissue masses. THORACIC DISCS T1-T12: No significant spinal stenosis or exit foraminal stenosis. LOWER CERVICAL: Incompletely imaged. No significant spinal stenosis or exit foraminal stenosis. UPPER LUMBAR: Incompletely imaged. No significant spinal stenosis or exit foraminal stenosis. ENHANCEMENT: No abnormal enhancement. OTHER: No other significant finding. IMPRESSION: NORMAL MRI THORACIC SPINE. TECHNICAL DOCUMENTATION: JOB ID: [id number] [employer]- All Rights Reserved Reading location - IP/workstation name: [email or web address]
--- NOTE | 2019-05-16 13:48 | RADIOLOGY REPORT (SQ) ---
EXAM DESCRIPTION: MRI CERVICAL SPINE COMBO COMPLETED DATE/TIME: 05/16/2019 1:13 pm REASON FOR STUDY: C79.51 BONE METS C79.51 SECONDARY MALIGNANT NEOPLASM OF BONE COMPARISON: None. TECHNIQUE: Sagittal and Axial imaging includes T1, T2, STIR and gradient echo sequences. T1 post ricardo olinium sequences. CONTRAST TYPE AND DOSE: 15 mL Dotarem. RENAL FUNCTION: Not indicated. ACR Type II contrast agent associated with few, if any, unconfounded cases of NSF LIMITATIONS: None. FINDINGS: ALIGNMENT: Normal. VERTEBRAE: Intact. BONE MARROW: Reactive endplate changes C4-5 and C5-6. DISCS: Loss of height C5-6. HARDWARE: None in the spine. CORD AND BASE OF BRAIN: Normal in size and signal intensity. No enhancement. SOFT TISSUES: No soft tissue masses. C1-C2: No significant spinal stenosis. C2-C3: No significant spinal stenosis or exit foraminal stenosis. C3-C4: Disc osteophyte complex asymmetric left. Flattening of the leftward thecal sac. Mild narrowi ng of the exit foramina. C4-C5: Disc osteophyte complex with flattening of the anterior thecal sac. Asymmetric left. Mild na rrowing of the left exit foramina. C5-C6: Disc osteophyte complex with marked flattening of the anterior thecal sac and obliteration CSF spaces. Marked narrowing of the exit foramina central stenosis. C6-C7: No significant spinal stenosis or exit foraminal stenosis. C7-T1: No significant spinal stenosis or exit foraminal stenosis. UPPER THORACIC: Incompletely imaged. No significant spinal stenosis or exit foraminal stenosis. ENHANCEMENT: No abnormal enhancement. OTHER: No other significant finding. IMPRESSION: No enhancing lesions. Marked spinal stenosis and exit foraminal stenosis C5-6. Less prominent changes C4-5. COMMENT: None. TECHNICAL DOCUMENTATION: JOB ID: [id number] [email or web address]- All Rights Reserved Reading location - IP/workstation name: [email or web address]
--- NOTE | 2019-05-16 14:10 | RADIOLOGY REPORT (SQ) ---
EXAM DESCRIPTION: MRI LUMBAR SPINE COMBO COMPLETED DATE/TIME: 05/16/2019 1:13 pm REASON FOR STUDY: C79.51 BONE METS C79.51 SECONDARY MALIGNANT NEOPLASM OF BONE COMPARISON: None. TECHNIQUE: Sagittal and Axial imaging includes T1, T1 post gadolinium, T2, STIR and gradient echo se quences. Coronal T2/HASTE imaging. CONTRAST TYPE AND DOSE: 15 mL Dotarem. RENAL FUNCTION: Not indicated. ACR Type II contrast agent associated with few, if any, unconfounded cases of NSF LIMITATIONS: None. FINDINGS: VISUALIZED UPPER ABDOMEN: No coronal imaging. SEGMENTATION: No transitional anatomy. The lowest well-developed disc space is labeled L5-S1. ALIGNMENT: Anatomic. VERTEBRAE: Focal compression fracture L4 with central Schmorl's node and fracture line along the infe rior endplate. No extension into the pedicles. BONE MARROW: Minimal reactive changes L3-4. DISC SIGNAL: Normal. No significant abnormal signal or loss of height. POSTERIOR ELEMENTS: Generally intact. No pars defect evident. HARDWARE: None in the spine. CORD AND CONUS: Normal in size and signal intensity. Conus at the appropriate level. No enhancing le sions. SOFT TISSUES: No aortic aneurysm seen. No bulky retroperitoneal adenopathy or mass. No paraspinal mas s or fluid. L1-L2: No significant spinal stenosis or exit foraminal stenosis. L2-L3: No significant spinal stenosis or exit foraminal stenosis. L3-L4: Generalized disc bulge. Facet ligamentous hypertrophy. Moderate narrowing of the exit forami na and central canal stenosis. L4-L5: Generalize asymmetric bulge leftward. Posterior element overgrowth. Moderate narrowing of th e left exit foramina and mild narrowing of the right exit foramina. Mild central canal stenosis. L5-S1: No significant spinal stenosis or exit foraminal stenosis. LOWER THORACIC: Incompletely imaged. No stenosis seen. SACRUM: Visualized upper sacrum intact. ENHANCEMENT: No abnormal enhancement. OTHER: No other significant findings. IMPRESSION: Acute L4 compression fracture with central loss of height and inferior Schmorl's node. No suggestion of pathologic fracture. No extension into the pedicles and no retropulsion. Moderate central canal stenosis at L3-4. Exit foraminal narrowing and central canal stenosis L4-5. No metastatic lesions noted. TECHNICAL DOCUMENTATION: JOB ID: [id number] [employer]- All Rights Reserved Reading location - IP/workstation name: [email or web address]
== END ==
LOC: RAD 10:41
PROVIDERS: ATTEND Urology
DX: C79.51 Secondary malignant neoplasm of bone (principal)
CPT/HCPCS: 82565; 72156; 72157; 72158; A9576

== ENCOUNTER 2019-12-25 18:13 | Emergency (ER) | payer MEDICARE, MEDICAID ==
[2019-12-25] MEDS: NORMAL SALINE 1000 ML 1,000 ML IV PRN ×2 (18:15→18:19)
--- NOTE | 2019-12-25 19:03 | ER Document Report ---
ED General - General Mode of Arrival: Medic Information source: Patient TRAVEL OUTSIDE OF THE [place] IN LAST 30 DAYS: No - HPI Onset: This afternoon Onset/Duration: Sudden, Persistent, Worse Quality of pain: Achy Severity: Mild Pain Level: 1 Associated symptoms: Weakness Exacerbated by: Movement Relieved by: Standing Similar symptoms previously: No Recently seen / treated by doctor: No <KYUNG YOUNG JR - Last Filed: 12/25/19 20:17> <JAMIE SMALL IV - Last Filed: 12/25/19 23:35> - General Stated Complaint: BLOOD PRESSURE ISSUES Time Seen by Provider: 12/25/19 18:52 Primary Care Provider: KYUNG RASHID [Primary Care Provider] - Follow up as needed Notes: 69 male arrives by EMS after his friend called EMS because of patient becoming very weak and diaphoretic. He arrived with low blood pressure. Patient had an IV with Levophed per EMS running. This was discontinued and patient received 2 bags of NS per nursing staff. Patient otherwise is doing well. He reports he is supposed to be on 6 different medications but he is now out of his medicines. He gets [facility] medicines [facility]. He was supposed to receive shots for prostate cancer every month as well as a shot for bone strength every month. He is followed by Dr. Rashid in [place]. Patient reports in the past he has had both knees worked on orthopedically. He was out today cutting up an old metal trailer when he became quite dizzy. He reports he cannot see out of his left eye because of a stroke more than 2 years ago. He denies any blurry vision at this time. He denies any sore throat cephalgia nuchal rigidity tick bites animal bites human bites but bites insecticide exposure herbal [id number] medicines other peoples medicines illegal mind altering medicines. He did say he has pain upon urination at this time. He denies any prior history of urinary tract infections. I was advised by patient he takes Mobic for pain and is on no oxycodone now. Myself and nursing staff did a rectal exam. He has nontender prosthetic tissue area with no stool in the vault and it was negative for guaiac. (KYUNG YOUNG JR) - Related Data Allergies/Adverse Reactions: No Known Allergies Allergy (Verified 01/11/19 12:02) Past Medical History - General Information source: Patient, Emergency Med Personnel - Social History Smoking Status: Former Smoker - Quit 2 years ago Cigarette use (# per day): No Chew tobacco use (# tins/day): No Smoking Education Provided: No Frequency of alcohol use: Occasional Lives with: Family Family History: Reviewed & Not Pertinent Patient has suicidal ideation: No Patient has homicidal ideation: No - Past Medical History Cardiac Medical History: Reports: Hx Hypertension Neurological Medical History: Reports: Hx Cerebrovascular Accident - 2013; resulting in loss of 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 Renal/ Medical History: Denies: Hx Peritoneal Dialysis Malignancy Medical History: 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; tx w/chemo Psychiatric Medical History: Denies: Hx Depression Traumatic Medical History: Reports: Hx Fractures - right hip Past Surgical History: Reports: Hx Orthopedic Surgery - right knee total replacement - Immunizations Hx Diphtheria, Pertussis, Tetanus Vaccination: Yes <KYUNG YOUNG JR - Last Filed: 12/25/19 20:17> Review of Systems - Review of Systems Constitutional: See HPI, Weakness EENT: No symptoms reported Cardiovascular: No symptoms reported Respiratory: No symptoms reported Gastrointestinal: No symptoms reported Genitourinary: No symptoms reported Male Genitourinary: No symptoms reported Musculoskeletal: No symptoms reported Skin: No symptoms reported Hematologic/Lymphatic: No symptoms reported Neurological/Psychological: See HPI, Weakness, Headaches <KYUNG YOUNG JR - Last Filed: 12/25/19 20:17> Physical Exam - Vital signs Interpretation: Hypotensive - General General appearance: Alert - HEENT Head: Normocephalic - Decision, Atraumatic Eyes: Normal Pupils: PERRL External canal: Normal - Understand Pharynx: Normal Neck: Normal - Respiratory Respiratory status: No respiratory distress Chest status: Nontender Breath sounds: Normal Chest palpation: Normal - Cardiovascular Rhythm: Regular Heart sounds: Normal auscultation Murmur: No - Abdominal Inspection: Normal Distension: No distension Bowel sounds: Normal Tenderness: Nontender Organomegaly: No organomegaly - Rectal Tenderness: No Stool: Heme negative Prostate: Other - deferred - Genitourinary Scrotum: Other - deferred - Back Back: Normal - Extremities General upper extremity: Normal inspection General lower extremity: Normal inspection - Neurological Neuro grossly intact: Yes Cognition: Normal Orientation: AAOx4 [place] Coma Scale Eye Opening: Spontaneous [place] Coma Scale Verbal: Oriented [place] Coma Scale Motor: Obeys Commands [place] Coma Scale Total: 15 Speech: Normal Motor strength normal: LUE, RUE, LLE, RLE Sensory: Normal - Psychological Associated symptoms: Normal affect - Skin Skin Temperature: Warm Skin Moisture: Diaphoretic <KYUNG YOUNG JR - Last Filed: 12/25/19 20:17> - Vital signs Vitals: Resp Pulse Ox 15 92 12/25/19 18:58 12/25/19 18:58 Course - Laboratory Result Diagrams: 12/25/19 18:40 12/25/19 18:40 - Diagnostic Test Radiology reviewed: Reports reviewed - COPD but no infiltrate - EKG Interpretation by Fl EKG shows normal: Sinus rhythm Rate: Normal Rhythm: NSR - [address] elevation no ST depression no T wave elevation and no T wave depression and axis within normal limits and this was read by me <KYUNG YOUNG JR - Last Filed: 12/25/19 20:17> - Laboratory Result Diagrams: 12/25/19 18:40 12/25/19 18:40 <JAMIE SMALL IV - Last Filed: 12/25/19 23:35> - Re-evaluation Re-evalutation: 12/25/19 23:32 VQ scan negative for evidence of pulmonary embolus. Results of ED MSE discussed with patient. Patient's blood pressure is now 105/63, patient's heart rate is 84 patient states he feels fine. All questions were answered prior to dischar ge. Emergency signs and symptoms, reasons to return to the emergency department discussed with patient. (JAMIE SMALL IV) - Vital Signs Vital signs: Temp Pulse Resp BP Pulse Ox 22 H 122/63 100 12/25/19 23:01 12/25/19 23:01 12/25/19 23:01 - Laboratory Laboratory results interpreted by me: 12/25/19 12/25/19 12/25/19 18:40 18:40 18:40 RBC 3.69 L Hgb 10.7 L Hct 31.4 L D-Dimer Sodium 134.0 L BUN 35 H Creatinine 2.63 H Est GFR ( Amer) 29 L Est GFR (MDRD) Non-Af 24 L Glucose 134 H Creatine Kinase 205 H NT-Pro-B Natriuret Pep 692 H Acetaminophen < 10 L 12/25/19 18:40 RBC Hgb Hct D-Dimer 1.05 H Sodium BUN Creatinine Est GFR ( Amer) Est GFR (MDRD) Non-Af Glucose Creatine Kinase NT-Pro-B Natriuret Pep Acetaminophen Critical Care Note <KYUNG YOUNG JR - Last Filed: 12/25/19 20:17> - Critical Care Note Comments: After 2 L of saline and 1 L of LR patient's blood pressure was still 84 systolic and therefore patient was begun on 1 more liter of LR and Levophed was begun. Also urinalysis was taken and patient was started on antibiotics. This case was turned over to Dr. Abel Small at 2030 (KYUNG YOUNG ) Discharge <KYUNG YOUNG JR - Last Filed: 12/25/19 20:17> <JAMIE SMALL IV - Last Filed: 12/25/19 23:35> - Discharge Clinical Impression: Weakness Hypotension Qualifiers: Hypotension type: unspecified hypotension type Qualified Code(s): I95.9 - Hypotension, unspecified Condition: Good Disposition: HOME, SELF-CARE Additional Instructions: Return to the Emergency Department without delay if any worse. HOME CARE INSTRUCTIONS & INFORMATION: Thank you for choosing us for your medical needs. We hope you're satisfied with the care you received. After you leave, you must properly care for your problem and, at the same time, observe its progress. Any condition can change. Some illnesses can change rapidly over hours or days. If your condition worsens, return to the Emergency Department or see your physician promptly. ABOUT YOUR X-RAYS AND EKG'S: If you had an EKG or X-rays taken, they have been read by the Emergency Physician. The X-rays and EKG's will also be read by a Radiologist or Grocery Supervisor within 24 hours. If discrepancies are noted, you will be notified by telephone. Please be certain the ED has a correct telephone number & address where you can be reached. Also, realize that some fractures or abnormalities do not show up on initial X-rays. If your symptoms continue, see your physician. ABOUT YOUR LABORATORY TEST: If you had laboratory tests, the results have been reviewed by the Emergency Physician. Some test results (for example cultures) may not be available for several days. You will be contacted if any test result shows you need additional treatment. Please be certain the ED has a correct telephone number and address where you can be reached. ABOUT YOUR MEDICATIONS: You will receive instructions on how to take your medicine on the prescription label you receive. Additional information may be provided by the Pharmacy. If you have questions afterwards, call the ED for clarification or further instructions. Some prescribed medications may cause drowsiness. Do not perform tasks such as driving a car or operating machinery without consulting your Pharmacist. If you feel you need a refill of pain medication, your condition will need re-evaluation. Please do not call for a refill of any medication. ABOUT YOUR SIGNATURE: Signature of this document acknowledges to followin. Understanding that you received emergency treatment and that you may be released before al medical problems are known or treated. Please be certain the ED has a correct phone number & address where you can be reached. 2. Acknowledgement that you will arrange for follow-up care as recommended. 3. Authorization for the Emergency Physician to provide information to your follow-up Physician in order to maximize your care. AT ANY TIME, IF YOUR SYMPTOMS CHANGE SIGNIFICANTLY OR WORSEN OR YOU DEVELOP NEW SYMPTOMS, RETURN TO THE EMERGENCY DEPARTMENT IMMEDIATELY FOR RE-EVALUATION. OUR GOAL IS TO PROVIDE EXCELLENT MEDICAL CARE! WE HOPE THAT WE HAVE MET YOUR EXPECTATIONS DURING YOUR EMERGENCY DEPARTMENT VISIT AND THAT YOU FEEL YOU HAVE RECEIVED EXCELLENT CARE! Referrals: KYUNG RASHID [Primary Care Provider] - Follow up as needed
[2019-12-25 19:16] LABS: ABSOLUTE BASOPHILS # (AUTO) 0.1 10^3/uL (0.0-0.2); ABSOLUTE EOSINOPHILS # (AUTO) 0.1 10^3/uL (0.0-0.6); EOSINOPHILS % (AUTO) 1.2 % (0-6); HEMOGLOBIN 10.7 g/dL (13.5-17.0); MEAN CORPUSCULAR HGB CONC 34.1 g/dL (32.0-36.0); TOTAL CELLS COUNTED % (AUTO) 100 %
[2019-12-25 19:19] LABS: INTERNATIONAL RATION (INR) 1.04; PROTHROMBIN TIME 13.8 SEC (11.4-15.4)
[2019-12-25 19:20] LABS: PARTIAL THROMBOPLASTIN TIME 28.4 SEC (23.5-35.8)
[2019-12-25 19:22] LABS: D-DIMER 1.05 ug/mL (0.00-0.50)
[2019-12-25 19:25] LABS: ABSOLUTE LYMPHOCYTES (AUTO) 1.2 10^3/uL (0.5-4.7); ABSOLUTE MONOCYTES (AUTO) 0.6 10^3/uL (0.1-1.4); BASOPHILS % (AUTO) 0.8 % (0-2); HEMATOCRIT 31.4 % (37.9-51.0); MEAN CORPUSCULAR VOLUME 85 fl (80-97); MONOCYTES % (AUTO) 7.5 % (3-13); PLATELET COUNT 211 10^3/uL (150-450); RED BLOOD COUNT 3.69 10^6/uL (4.35-5.55); RED CELL DISTRIBUTION WIDTH 13.7 % (11.5-14.0); SEGMENTED NEUTROPHILS % (AUTO) 75.5 % (42-78); WHITE BLOOD COUNT 7.9 10^3/uL (4.0-10.5)
[2019-12-25 19:36] LABS: ALBUMIN 4.2 g/dL (3.5-5.0); ALKALINE PHOSPHATASE 123 U/L (38-126); ANION GAP 11 (5-19); ASPARTATE AMINO TRANSFERASE 33 U/L (17-59); BILIRUBIN,DIRECT 0.3 mg/dL (0.0-0.4); BILIRUBIN,TOTAL 0.6 mg/dL (0.2-1.3); BLOOD UREA NITROGEN 35 mg/dL (7-20); CALCIUM 9.2 mg/dL (8.4-10.2); CARBON DIOXIDE 23 mmol/L (22-30); CHLORIDE 100 mmol/L (98-107); CREATINE KINASE 205 U/L (55-170); GLUCOSE 134 mg/dL (75-110); POTASSIUM 4.8 mmol/L (3.6-5.0); TOTAL PROTEIN 7.1 g/dL (6.3-8.2)
[2019-12-25 19:40] LABS: ACETAMINOPHEN < 10 ug/mL (10-30); ALCOHOL < 10 mg/dL (NONE DETECTED)
[2019-12-25 19:44] LABS: NT PRO BNP 692 pg/mL (<125); TROPONIN I < 0.012 ng/mL
[2019-12-25] MEDS: RINGERS SOLUTION,LACTATED 1,000 ML IV PRN ×2 (19:48→20:50)
--- NOTE | 2019-12-25 20:15 | RADIOLOGY REPORT (SQ) ---
EXAM DESCRIPTION: XR CHEST 1 VIEW COMPLETED DATE/TME: 12/25/2019 18:55 CLINICAL HISTORY: 69 years, Male, weak COMPARISON: None. NUMBER OF VIEWS: 1 TECHNIQUE: Portable AP upright examination of the chest was performed on 2 images at 7:50 PM. LIMITATIONS: Slight overexposure FINDINGS: The heart size is within normal limits. The lungs appear clear. Incidental calcified AP window lymph node is noted, consistent with old healed granulomatous disease. There is no evidence of pleural effusion or pneumothorax. No definite acute bony abnormality is seen. IMPRESSION: No acute abnormality as above. copyright 2010 [employer]- All Rights Reserved
[2019-12-25] MEDS ORDERED: DEXTROSE 5%-WATER 250 ML with NOREPINEPHRINE BITARTRATE 4 MG IV PRN ×2 (20:23)
[2019-12-25] MEDS ORDERED: CEFTRIAXONE INJ 1000 MG VIAL IV ONE (20:24)
[2019-12-25] MEDS ORDERED: LEVOFLOXACIN 750 MG/D5W RTU 750 MG/150 ML RTUPB IV ONE (20:24)
[2019-12-25] MEDS ORDERED: NOREPINEPHRINE BITARTRATE INJ/PF 4 MG/4 ML SDV IV ONE (20:28)
[2019-12-25] MEDS ORDERED: RINGERS SOLUTION,LACTATED 1,000 ML IV PRN (20:32)
[2019-12-25 21:17] LABS: APPEARANCE,URINE CLEAR; BILIRUBIN,URINE NEGATIVE (NEGATIVE); COLOR,URINE YELLOW; GLUCOSE, URINE NEGATIVE (NEGATIVE); KETONES,URINE NEGATIVE (NEGATIVE); LEUKOCYTE ESTERASE,URINE NEGATIVE (NEGATIVE); NITRITE,URINE NEGATIVE (NEGATIVE); PROTEIN,URINE NEGATIVE (NEGATIVE); URINE SPECIFIC GRAVITY 1.005; UROBILINOGEN,URINE NEGATIVE mg/dL (<2.0)
--- NOTE | 2019-12-25 22:28 | RADIOLOGY REPORT (SQ) ---
NUCLEAR MEDICINE LUNG PERFUSION IMAGING Clinical indication: Weakness. Shortness of breath. Elevated d-dimer Comparison: None. Correlation: Chest radiography today Technique: Perfusion imaging was obtained as per standard protocol after intravenous administration of 5.0 mCi of technetium 99m labeled MAA. Findings: Homogeneous localization of radiotracer is identified on perfusion imaging. No segmental or subsegmental defects are identified to suggest a pulmonary embolus. Impression: No evidence of pulmonary embolus.
[2019-12-25 23:47] VITALS: BP 105/63
--- NOTE | 2019-12-28 02:53 | EKG REPORT ---
SEVERITY:- ABNORMAL ECG - SINUS RHYTHM INCOMPLETE RIGHT BUNDLE BRANCH BLOCK : Confirmed by: Gurpreet Molina MD 28-Dec-2019 02:52:50
== END 2019-12-25 23:55 | disposition home or self-care (01) ==
LOC: ER 18:13
DX: I95.9 Hypotension, unspecified (principal); R53.1 Weakness; R51 Headache; R61 Generalized hyperhidrosis; R42 Dizziness and giddiness; C61 Malignant neoplasm of prostate; I10 Essential (primary) hypertension; I69.398 Other sequelae of cerebral infarction; H54.62 Unqualified visual loss, left eye, normal vision right eye; R52 Pain, unspecified; Z79.1 Long term (current) use of non-steroidal anti-inflammatories (NSAID); Z87.891 Personal history of nicotine dependence; Z92.21 Personal history of antineoplastic chemotherapy
CPT/HCPCS: 93005; 99285; 96361; 96365; 96368; 36415; 87040; 87086; 80307 ×2; 82550; 83605; 85025; 85610; 85730; 80053; 81001; 84484; 85379; 83880; 71045; 78580; 93010; A9540; J0696; J7030; J7120; J1956; Q9969